=== PATIENT | female | born 1970 | race Caucasian/White ===

== ENCOUNTER → 2017-03-23 | Outpatient (CLI) | payer BC ==
--- NOTE | 2017-03-23 11:48 | XR ---
Abdomen HISTORY: Bilateral renal stones Frontal view of the abdomen correlated to previous exam 02 August 2016 Bilateral renal calculi are again noted. The largest on the right persists and measures approximately 7 mm in diameter. Scattered smaller calculi are present, there may be 6 or 7 additional calculi. On the left multiple calculi are also present, there may be 10 or more calculi, largest at the upper maurice e thought to persist measuring approximately 7 mm with some adjacent calculi present that are smaller in size. There is a spinal curvature. No evident pelvic calcifications. Lung bases are not included on the exam. No bowel obstruction or pneumoperitoneum. IMPRESSION: Bilateral nephrolithiasis.
== END | disposition home or self-care (01) ==
LOC: RADXRMAIN 09:27
PROVIDERS: ATTEND Urology
DX: N20.0 Calculus of kidney (principal)
CPT/HCPCS: 74000

== ENCOUNTER → 2017-11-23 | Outpatient (CLI) | payer OTHER ==
--- NOTE | 2017-11-23 14:22 | XR ---
EXAMINATION TYPE: XR KUB DATE OF EXAM: 11/23/2017 2:10 PM CLINICAL HISTORY: Bilateral ureteral calculi TECHNIQUE: Single supine KUB image of the abdomen is obtained. COMPARISON: 10/28/2017 FINDINGS: Numerous clustered (again at least 10 in number) punctate left lower pole renal calculi are seen in addition to at least 5 clustered upper pole renal calculi and 2 adjacent mid pole calculi ag ain measuring up to 7 mm. Again the right kidney is partially obscured by overlying bowel gas. The previously seen approximatel y 8 mm calculus is redemonstrated within the region of the midpole. A new calculus overlies the L3 tr ansverse process and the previously noted 6 mm calculus on the exam of 10/28/2017 within the lower po le is no longer present, therefore this likely represents a right renal calculus now located within t he region of the right renal pelvis. No new calculi are seen within the pelvis or within the region of the urinary bladder. Osseous struct ures appear intact. Again bilateral CAM deformities of the femoral head neck junctions may predispose the patient to internal femoral impingement. Bowel gas pattern is nonobstructive. Mild dextroscoliot ic curvature of the lumbar spine is present. IMPRESSION: 1. New right-sided calculus in the region of the right renal pelvis presumably migrated from the righ t lower pole as the previously seen 6 minutes calculus on the exam of 10/28/2017 is no longer visuali zed within the lower pole. CT could be performed if there is further clinical indication. 2. Numerous left-sided renal calculi are overall stable from the prior.
== END | disposition home or self-care (01) ==
LOC: RADXRMAIN 13:42
PROVIDERS: ATTEND Physician Assistant
DX: N20.0 Calculus of kidney (principal)
CPT/HCPCS: 74018

== ENCOUNTER → 2017-11-25 | Outpatient (CLI) | payer OTHER ==
[2017-11-25 13:26] LABS: Basophils % (A) 1 %; Eosinophils # (A) 0.1 k/uL (0-0.7); Eosinophils % (A) 2 %; HGB 13.8 gm/dL (11.4-16.0); Lymphocytes # (A) 1.7 k/uL (1.0-4.8); Lymphocytes % (A) 33 %; MCH 31.1 pg (25.0-35.0); MCHC 32.9 g/dL (31.0-37.0); MCV 94.5 fL (80.0-100.0); Mean Platelet Volume 8.3; Monocytes # (A) 0.2 k/uL (0-1.0); Monocytes % (A) 5 %; Neutrophils % (A) 58 %; Platelet Count 186 k/uL (150-450); RBC 4.45 m/uL (3.80-5.40); RDW 13.2 % (11.5-15.5); WBC 5.2 k/uL (3.8-10.6)
[2017-11-25 13:41] LABS: Anion Gap 12 mmol/L; Blood Urea Nitrogen 16 mg/dL (7-17); Calcium 10.4 mg/dL (8.4-10.2); Carbon Dioxide 31 mmol/L (22-30); Chloride 98 mmol/L (98-107); Glucose 93 mg/dL (74-99); Potassium 4.3 mmol/L (3.5-5.1); Sodium 141 mmol/L (137-145)
== END | disposition home or self-care (01) ==
LOC: LABPAT 12:35
PROVIDERS: ATTEND Urology
DX: Z01.812 Encounter for preprocedural laboratory examination (principal); N20.0 Calculus of kidney
CPT/HCPCS: 36415; 80048; 85025; 93005

== ENCOUNTER 2017-11-26 12:18 | Day surgery (SDC) | payer OTHER ==
[2017-11-25 11:37] VITALS: BMI 23.3
[~2017-11-26 12:18] MED LIST: DEXAMETHASONE SOD PHOSPHATE 10 MG/ML 1 ML VIAL IV ONE; GENTAMICIN 120 MG in SODIUM CHLORIDE 0.9% 100 ML IVPB ONE; HYDROmorphone 0.5 MG/0.5 ML SYRINGE IVP PRN; LACTATED RINGERS 1,000 ML IV SCH; LIDOCAINE 1% 20 ML VIAL (10MG/ML) FOR IV START INTRADERMA PRN; MIDAZOLAM 2 MG/2 ML VIAL IV PRN; ONDANSETRON 4 MG/2 ML VIAL IVP ONE; SCOPOLAMINE 1.5MG/72HR PATCH TRANSDERM ONE; ceFAZolin IN SWFI 2 GM/20 ML SYRINGE IVP ONE
[2017-11-26 13:07] VITALS: TEMP 98.5
--- NOTE | 2017-11-26 13:59 | XR ---
EXAMINATION TYPE: XR abdomen 1V DATE OF EXAM: 11/26/2017 HISTORY: pre op for cysto. Rt sided kidney stones. Comparison: November 23, 2017 Single KUB is submitted for interpretation. Findings: Right renal calculi: Overlying bowel content limits evaluation. There appears to be staghorn density overlying the renal pelvis however this was not seen on recent prior study and likely is artifactual in nature. Previously described calculus in the region of the right renal pelvis is poorly characteri zed at this time. Right ureteral calculi: None Visualized. Left renal calculi: Numerous clustered renal calculi upper, mid and lower pole left kidney appear es sentially unchanged. Left ureteral calculi: None Visualized. Pelvic calcifications: None Visualized. Bowel gas pattern is unremarkable. No free air. No mass effects. IMPRESSION: 1. No significant change in multiple clustered renal calculi on the left. 2. Evaluation of the right kidney is limited by overlying bowel content. Priestly described calculus in the region of the right renal pelvis is poorly characterized at this time.
[2017-11-26] MEDS ORDERED: KETOROLAC 30 MG/ML 1 ML VIAL ONE (14:21)
[2017-11-26] MEDS ORDERED: fentaNYL (PF) 50 MCG/ML 2 ML AMP ONE (14:21)
[2017-11-26] MEDS ORDERED: MIDAZOLAM 2 MG/2 ML VIAL ONE (14:21)
[2017-11-26] MEDS ORDERED: PROPOFOL 10 MG/ML 20 ML VIAL IV ONE (14:21)
[2017-11-26] MEDS ORDERED: SUCCINYLCHOLINE CHLORIDE 100 MG/5 ML SYR IV ONE (14:21)
[2017-11-26] MEDS ORDERED: LIDOCAINE 1% INJ 10MG/ML (20 ML MDV) ONE (14:21)
[2017-11-26] MEDS ORDERED: HYDROmorphone (PF) 1 MG/ML ONE (14:21)
[2017-11-26] MEDS ORDERED: LACTATED RINGERS 1,000 ML IV ONE (15:08)
--- NOTE | 2017-11-26 16:34 | P.OP ---
Date of Procedure: 11/26/17 Preoperative Diagnosis: Right Renal Calculi Postoperative Diagnosis: Same Procedure(s) Performed: Cystoscopy, right ureteroscopy with Holmium laser lithotripsy and stone basketing, right ureteral stent insertion Anesthesia: MANAV Surgeon: Geoffrey Burt Estimated Blood Loss (ml): 0 IV fluids (ml): 900 Pathology: none sent Condition: stable Disposition: PACU Indications for Procedure: She is a 47-year-old woman with kidney stones. Her repeat 24-hour urine showed significant improvement in her hypercalciuria and hypernatriuria. In 2014, she was found to have a 6 mm right proximal ureteral calculus. Her CT scan also showed approximately 10 stones in each kidney. She underwent ureteroscopic removal of the right ureteral calculus, as well as the majority of her renal calculi. Her serum calcium level was mildly elevated, but repeat levels were normal. A repeat 24-hour urine study showed hyperoxaluria, and she was advised to decrease her dietary oxalate. She was also advised to decrease her meat consumption. She has recently experienced right flank discomfort. A KUB x-ray shows that a calculus has migrated into the right renal pelvis. She will undergo ureteroscopic removal of this calculus, and other right renal calculi. Operative Findings: Right renal pelvic calculus, fragmented and basketed successfully. Description of Procedure: The patient was taken to the operating room and placed in the dorsolithotomy position, with legs supported in Asim stirrups. The external genitalia was prepped and draped sterilely. The 30 lens was used to introduce the 19-Cymraes Stortz cystoscopic sheath through the urethra and into the bladder under direct vision. The bladder was examined in its entirety. 2 ureteral orifices were seen on the left, consistent with complete duplication. The right ureteral orifice appeared normal. No tumors or foreign bodies were seen. A 0.038 inch Glidewire was passed through the cystoscope. The right ureteral orifice was cannulated, and the Glidewire was advanced up to the right renal pelvis. An 11/ 13-Cymraes ureteral access catheter was passed over the wire, up to the proximal ureter. The Olympus mini flexible ureteroscope was passed through the ureteral access catheter sheath, and was advanced through the proximal ureter and into the right renal pelvis under direct vision. The 200 micron Holmium laser probe was passed through the ureteroscope. A small calculus was seen within an upper pole calyx, and lithotripsy was performed. The right renal pelvic calculus was identified. No additional calculi were seen. Lithotripsy was performed using a testing technique. The calculus passed into a lower pole calyx, making the procedure more difficult. Nonetheless, the calculus fragmented well. Despite the fact that a testing technique was utilized, the calculus did fragment and a 1.9-Cymraes nitinol basket was used to remove the calculus fragments. These were not sent for chemical analysis, as she has undergone stone analysis in the past. Once all significant calculus fragments had been removed, the ureteroscope was withdrawn. It should be noted that there was no evidence of trauma to the renal pelvis or the ureter. The Glidewire was passed through the ureteral access catheter sheath, which was then removed. The Glidewire was backloaded into the cystoscope, which was passed into the bladder. A 24 cm, 4.8 -Cymraes double-J ureteral stent was placed over the wire. Proper stent positioning was verified fluoroscopically and endoscopically. The bladder was emptied and the cystoscope removed. The patient tolerated the procedure well and was taken to the recovery room in stable condition.
[2017-11-26 16:37] VITALS: RESP 16
[2017-11-26] MEDS: MORPHINE SULFATE 5 MG/ML SYRINGE IVP ONE ×2 (16:47→16:56)
[2017-11-26] MEDS ORDERED: HYDROcodone/APAP 5-325MG 1 EACH TAB PO ONE (17:27)
--- NOTE | 2017-11-26 17:28 | FL ---
FLUOROSCOPY 43 seconds of fluoroscopy time were utilized during right ureteral stent placement. 1 images document the procedure.
[2017-11-26 17:54] VITALS: BP 121/79; PULSE 77
== END 2017-11-26 18:12 | disposition home or self-care (01) ==
LOC: OR 12:18
PROVIDERS: ATTEND Urology
DX: N20.0 Calculus of kidney (principal); I10 Essential (primary) hypertension; Z79.1 Long term (current) use of non-steroidal anti-inflammatories (NSAID); Z79.899 Other long term (current) drug therapy
CPT/HCPCS: 81025; 74018; 52356; C2625; C1769; J2250; J1100; J0690; J2405; J2001; J3010; J1885; J1580; J1170; J0330; J2704; J2274

== ENCOUNTER → 2018-01-29 | Outpatient (CLI) | payer OTHER ==
--- NOTE | 2018-01-29 14:03 | XR ---
EXAMINATION TYPE: XR KUB DATE OF EXAM: 01/29/2018 11:05 AM CLINICAL HISTORY: Left-sided flank pain TECHNIQUE: Single supine KUB image of the abdomen is obtained. COMPARISON: 11/23/2017. FINDINGS: The previously seen new right renal calculus within the region of the pelvis overlying the transverse process of L3 on the right is no longer visualized and may have passed in the interim. The numerous clustered renal calculi within the upper pole, mid pole and lower pole are redemonstrated a nd appear overall morphologically similar to the prior exam of 11/23/2017. Again there are at least 10 clustered within the lower pole, 5 within the upper pole and at least 2 clusters within the midpole. No new calcification is seen along the course of the ureter or within the low pelvis. No phleboliths are within the pelvis. Osseous structures are grossly intact. Again can deformities of the bilateral femoral head neck junct ions are noted that may predispose the patient to internal impingement. Bowel gas pattern is nonobstr uctive. Minimal dextroscoliotic curvature of the lumbar spine is redemonstrated. IMPRESSION: 1. Nonvisualization of previously seen right renal calculus that was overlying the transverse process of L3 in the region of the renal pelvis, likely passed in the interim. 2. The numerous clusters of left upper pole, mid pole and lower pole renal calculi appear morphologic ally similar to exam of 11/23/2017 and no new calculi are seen within the course of the ureter or withi n the pelvis to raise suspicion for obstructive uropathy.
== END | disposition home or self-care (01) ==
LOC: RADXRMAIN 10:54
PROVIDERS: ATTEND Urology
DX: N20.0 Calculus of kidney (principal)
CPT/HCPCS: 74018

== ENCOUNTER → 2018-08-20 | Outpatient (CLI) | payer OTHER ==
--- NOTE | 2018-08-23 10:59 | MM ---
Reason for exam: screening (asymptomatic). Last mammogram was performed 2 years and 6 months ago. Physical Findings: A clinical breast exam by your physician is recommended on an annual basis and results should be correlated with mammographic findings. MG 3D Screening Mammo W/Cad Bilateral CC and MLO view(s) were taken. Prior study comparison: February 07, 2016, mammogram, performed at [facility]. May 10, 2015, mammogram, performed at [facility]. The breast tissue is heterogeneously dense. This may lower the sensitivity of mammography. No suspicious abnormality. ASSESSMENT: Negative, BI-RAD 1 RECOMMENDATION: Routine screening mammogram of both breasts in 1 year.
== END | disposition home or self-care (01) ==
LOC: RADMAMWWP 11:59
PROVIDERS: ATTEND Obstetrics & Gynecology
DX: Z12.31 Encounter for screening mammogram for malignant neoplasm of breast (principal)
CPT/HCPCS: 77063; 77067

== ENCOUNTER → 2018-10-15 | Outpatient (CLI) | payer OTHER ==
--- NOTE | 2018-10-15 15:50 | XR ---
EXAMINATION TYPE: XR KUB DATE OF EXAM: 10/15/2018 3:44 PM CLINICAL HISTORY: History of kidney stones with bilateral flank pain TECHNIQUE: Two supine KUB images of the abdomen are obtained. COMPARISON: Abdominal x-ray January 29, 2018. FINDINGS: Multiple left-sided renal calculi are identified, at least 20 calculi are again seen with l arger calculi noted upper pole level just above the 12th rib. There are suspected 5-10 small calculi scattered throughout the right kidney. There is overall nonobstructive bowel gas pattern. Dextroconvex scoliotic curvature centered at L3 le kg is redemonstrated. IMPRESSION: Bilateral left greater than right nephrolithiasis without significant interval change.
== END | disposition home or self-care (01) ==
LOC: RADXRMAIN 15:26
PROVIDERS: ATTEND Urology
DX: N20.0 Calculus of kidney (principal)
CPT/HCPCS: 74018

== ENCOUNTER → 2019-08-02 | Outpatient (CLI) | payer OTHER ==
[2019-08-02 13:06] LABS: Basophils % (A) 1 %; Eosinophils # (A) 0.1 k/uL (0-0.7); Eosinophils % (A) 2 %; HCT 39.6 % (34.0-46.0); HGB 13.8 gm/dL (11.4-16.0); Lymphocytes # (A) 1.5 k/uL (1.0-4.8); Lymphocytes % (A) 27 %; MCH 31.4 pg (25.0-35.0); MCHC 34.8 g/dL (31.0-37.0); MCV 90.2 fL (80.0-100.0); Mean Platelet Volume 7.3; Monocytes # (A) 0.2 k/uL (0-1.0); Monocytes % (A) 4 %; Neutrophils # (A) 3.5 k/uL (1.3-7.7); Neutrophils % (A) 65 %; Platelet Count 206 k/uL (150-450); RBC 4.39 m/uL (3.80-5.40); RDW 11.7 % (11.5-15.5); WBC 5.4 k/uL (3.8-10.6)
[2019-08-02 18:31] LABS: African American GFR (CKD) 118.7 (60.0-200.0)
[2019-08-02 19:28] LABS: Hepatitis C IgG Antibody Non-Reactive (Non-Reactive)
== END | disposition home or self-care (01) ==
LOC: LABWHC1 11:35
PROVIDERS: ATTEND Dermatology
DX: L40.0 Psoriasis vulgaris (principal)
CPT/HCPCS: 36415; 82565; 84450; 84460; 84520; 85025; 86706; 86803; 87340

== ENCOUNTER → 2020-03-16 | Outpatient (CLI) | payer OTHER ==
[2020-03-16 12:14] LABS: Basophils % (A) 1 %; Eosinophils # (A) 0.1 k/uL (0-0.7); Eosinophils % (A) 1 %; HCT 39.2 % (34.0-46.0); HGB 13.5 gm/dL (11.4-16.0); Lymphocytes # (A) 1.4 k/uL (1.0-4.8); Lymphocytes % (A) 32 %; MCH 33.4 pg (25.0-35.0); MCHC 34.4 g/dL (31.0-37.0); MCV 96.8 fL (80.0-100.0); Mean Platelet Volume 7.8; Monocytes # (A) 0.2 k/uL (0-1.0); Monocytes % (A) 6 %; Neutrophils # (A) 2.5 k/uL (1.3-7.7); Neutrophils % (A) 58 %; Platelet Count 172 k/uL (150-450); RBC 4.05 m/uL (3.80-5.40); RDW 12.3 % (11.5-15.5); WBC 4.3 k/uL (3.8-10.6)
[2020-03-16 18:41] LABS: ALT 34 U/L (8-44); AST 34 U/L (13-35)
== END | disposition home or self-care (01) ==
LOC: LABWHC1 11:08
PROVIDERS: ATTEND Dermatology
DX: L40.0 Psoriasis vulgaris (principal)
CPT/HCPCS: 36415; 84450; 84460; 85025

== ENCOUNTER → 2020-06-05 | Outpatient (CLI) | payer OTHER ==
--- NOTE | 2020-06-05 14:29 | XR ---
KUB HISTORY: J 20.0, hematuria and history kidney stones Frontal KUB and 2 images correlated prior KUB 10/15/2018 Multiple fragmented calcifications are superimposed over the lower pole left kidney, there are at [address] 9 calcifications with the largest measuring approximately 3 to 4 mm. Calcifications are present ov er the upper pole and mid similar to prior exam. The largest is at the upper pole measures approximat eveline 5 to 6 mm. There is a dextroscoliosis of the mid lumbar spine. No pneumoperitoneum or bowel obstr uction. Bowel gas obscures detail in the right kidney. Questionable calcification is present over the lower pole. IMPRESSION: Left-sided nephrolithiasis similar to prior exam. Possible right-sided nephrolithiasis.
== END | disposition home or self-care (01) ==
LOC: RADXRMAIN 12:46
PROVIDERS: ATTEND Urology
DX: N20.0 Calculus of kidney (principal)
CPT/HCPCS: 74018

== ENCOUNTER → 2020-06-25 | Outpatient (CLI) | payer OTHER ==
--- NOTE | 2020-06-26 07:09 | US ---
EXAMINATION TYPE: US kidneys/renal and bladder DATE OF EXAM: 06/25/2020 COMPARISON: US 2016 CLINICAL HISTORY: N20.0 CALCULUS OF KIDNEY, R31.9 HEMATURIA. Hematuria, history of kidney stones EXAM MEASUREMENTS: Right Kidney: 11.2 x 5.3 x 4.7 cm Left Kidney: 12.1 x 5.3 x 5.0 cm Right Kidney: multiple echogenic foci throughout with largest measuring 0.6cm inferior pole Left Kidney: multiple echogenic foci throughout with largest measuring 0.8cm superior pole, 1.8cm and 2.0cm cystic areas superior pole Bladder: not fully distended, appears wnl as seen Bilateral Jets seen: no IMPRESSION: Multiple bilateral renal calculi with no evidence of hydronephrosis. Indeterminate hypoechoic lesion in the left kidney most likely in the basis of a renal cyst..
== END | disposition home or self-care (01) ==
LOC: RADUSWWP 15:36
PROVIDERS: ATTEND Urology
DX: N20.0 Calculus of kidney (principal); R31.9 Hematuria, unspecified
CPT/HCPCS: 76770

== ENCOUNTER → 2020-12-18 | Outpatient (CLI) | payer OTHER ==
--- NOTE | 2020-12-18 14:27 | XR ---
EXAMINATION TYPE: XR KUB DATE OF EXAM: 12/18/2020 COMPARISON: 06/05/2020 INDICATION: Right lower abdomen pain history of kidney stones TECHNIQUE: Single view abdomen supine view FINDINGS: There is a normal bowel gas pattern. Psoas margins are normal. No organomegaly is present. Multiple calcifications overlying the inferior pole left kidney. Additional calcifications are in the upper and mid portions of the kidney. The largest at the upper pole left kidney measures 0.7 cm jensen sverse. A few fine calcifications may be at the inferior pole right kidney. IMPRESSION: 1. Multiple bilateral small renal stones.
== END | disposition home or self-care (01) ==
LOC: RADXRMAIN 13:31
PROVIDERS: ATTEND Urology
DX: N20.0 Calculus of kidney (principal)
CPT/HCPCS: 74018

== ENCOUNTER → 2021-03-21 | Outpatient (CLI) | payer OTHER ==
--- NOTE | 2021-03-21 08:29 | US ---
EXAMINATION TYPE: US carotid duplex BILAT DATE OF EXAM: 03/21/2021 COMPARISON: NONE CLINICAL HISTORY: R42 Dizziness. HTN controlled with meds EXAM MEASUREMENTS: RIGHT: Peak Systolic Velocity (PSV) cm/sec ----- Right CCA: 103.0 ----- Right ICA: 119.0 ----- Right ECA: 84.5 ICA/CCA ratio: 1.2 RIGHT: End Diastole cm/sec ----- Right CCA: 41.6 ----- Right ICA: 52.6 ----- Right ECA: 20.8 LEFT: Peak Systolic Velocity (PSV) cm/sec ----- Left CCA: 114.0 ----- Left ICA: 112.0 ----- Left ECA: 100.0 ICA/CCA ratio: 1.0 LEFT: End Diastole cm/sec ----- Left CCA: 43.2 ----- Left ICA: 52.0 ----- Left ECA: 29.3 VERTEBRALS (direction of flow): Right Vertebral: Antegrade Left Vertebral: Antegrade Rhythm: Normal No plaque, significant stenosis or wall thickening visualized. No elevated velocities. IMPRESSION: No hemodynamically significant stenosis seen in either internal carotid artery. Criteria for Assigning % of Stenosis / Diameter reduction (Estimation based on the indirect measurements of the internal carotid artery velocities (ICA PSV). 1. Normal (no stenosis)=ICA PSV < 125 cm/s: ratio < 2.0: ICA EDV<40 cm/s. 2. Less than 50% stenosis=ICA PSV < 125 cm/s: ratio < 2.0: ICA EDV<40 cm/s. 3. 50 to 69% stenosis=ICA PSV of 125 to 230 cm/s: ration 2.0 ? 4.0: ICA EDV 40-100 cm/s. 4. Greater than 70% stenosis to near occlusion= ICA PSV > 230 cm/s: ratio > 4.0: ICA EDV > 100 cm/s. 5. Near occlusion= ICA PSV velocities may be low or undetectable: variable ratio and ICA EDV. 6. Total occlusion=unable to detect flow.
--- NOTE | 2021-03-22 08:16 | EST ---
Stress Test Results/Findings: Exam Performed: stress test Exam Date: 03/21/21 Reason for Exam: DIZZINESS Height: 5 ft 6 in Weight: 70.4 kg Protocol: EXERCISE TOLERANCE TEST Stage: 4 Duration of Exercise: 10:00 Resting Heart Rate: 83 Resting Blood Pressure: 137/96 Maximum Achieved Heart Rate: 164 Maximum Achieved Blood Pressure: 212/58 85% PMHR: 145 100% PMHR: 171 METS: 11.7 Technologist Comment: Stress Test Results/Findings: Patient underwent exercise stress EKG with a David protocol treadmill stress test. Patient exercised into Stage 4 for a total of 10 minutes reaching a total of 11.7 METS. Patient's maximum heart rate was 164 which represented 96 % age- predicted maximum heart rate. Stress EKG findings: At baseline patient's EKG showed normal sinus rhythm, normal axis, no significant ST or T wave abnormalities. At peak exercise, EKG showed nondiagnostic 0.[address] depressions in the inferior leads consistent with normal EKG response. Conclusions: 1. Normal EKG response to exercise without evidence of inducible ischemia. 2. Excellent exercise capacity. [facility]
== END | disposition home or self-care (01) ==
LOC: RADUSWWP 07:38
PROVIDERS: ATTEND Family Medicine
DX: R42 Dizziness and giddiness (principal); I10 Essential (primary) hypertension
CPT/HCPCS: 93017; 93880

== ENCOUNTER → 2021-11-27 | Outpatient (CLI) | payer OTHER ==
--- NOTE | 2021-11-27 13:18 | XR ---
EXAMINATION TYPE: XR KUB DATE OF EXAM: 11/27/2021 COMPARISON: NONE HISTORY: Pain TECHNIQUE: One view abdominal series FINDINGS: The osseous structures are intact. The bowel gas pattern is nonspecific. There are numerous calcific ations overlying the left and right kidney totaling approximately 20 on the left and 10 on the right similar in appearance to prior exam. Curvature of the spine with arthropathy of the hip greater on the right. Bowel gas nonspecific with e xtensive retained debris in the right colon. Lung bases clear. IMPRESSION: 1. Stable bilateral nephrolithiasis.
== END | disposition home or self-care (01) ==
LOC: RADXRMAIN 12:37
PROVIDERS: ATTEND Urology
DX: N20.0 Calculus of kidney (principal)
CPT/HCPCS: 74018

== ENCOUNTER → 2022-04-11 | Outpatient (CLI) | payer OTHER ==
--- NOTE | 2022-04-11 13:46 | XR ---
EXAMINATION TYPE: XR KUB DATE OF EXAM: 04/11/2022 1:24 PM CLINICAL HISTORY: Acute abdominal pain on and off for 2 months. TECHNIQUE: Single supine KUB image of the abdomen is obtained. COMPARISON: Abdominal x-ray November 27, 2021. FINDINGS: Multiple bilateral renal calculi more numerous in the left kidney are redemonstrated. Appro ximately 20 scattered calculi throughout the left kidney again seen. Right kidney has better visualiz ed roughly 8 mm oval density suspect calculus medially at L3-L4 disc space level could be in the righ t renal pelvis with smaller approximately 3-4 calculi upper pole right kidney near L1 level. Underlying dextroconvex scoliosis. Overall nonobstructive bowel gas pattern. Visualized osseous struc tures are intact. IMPRESSION: Bilateral nephrolithiasis. Suspect 8mm right pelvic renal calculus. Correlate clinically.
== END | disposition home or self-care (01) ==
LOC: RADXRMAIN 13:10
PROVIDERS: ATTEND Nurse Practitioner Family
DX: N20.0 Calculus of kidney (principal)
CPT/HCPCS: 74018

== ENCOUNTER → 2022-05-28 | Outpatient (CLI) | payer OTHER ==
[2022-05-28 22:42] LABS: HCT 41.2 % (37.2-46.3); HGB 13.9 g/dL (12.0-15.0); MCH 31.3 pg (27.0-32.0); MCHC 33.7 g/dL (32.0-37.0); MCV 92.8 fL (80.0-97.0); Mean Platelet Volume 11.4 fL (9.5-12.2); NRBC Per 100 WBC 0 /100 WBCS (0.0-0.0); Platelet Count 185 X 10*3/uL (140-440); RBC 4.44 X 10*6/uL (4.10-5.20); RDW 11.8 % (11.5-14.5); WBC 6.28 X 10*3/uL (4.50-10.00)
[2022-05-29 02:08] LABS: African American GFR (CKD) 117.1 (60.0-200.0); BUN/Creat Ratio 25.57 Ratio (12.00-20.00); Blood Urea Nitrogen 17.9 mg/dL (9.0-27.0); Calcium 9.9 mg/dL (8.7-10.3); Potassium 3.5 mmol/L (3.5-5.5)
== END | disposition home or self-care (01) ==
LOC: LABPAT 15:07
PROVIDERS: ATTEND Urology
DX: Z01.812 Encounter for preprocedural laboratory examination (principal); N20.0 Calculus of kidney
CPT/HCPCS: 80048; 85027

== ENCOUNTER 2022-05-29 12:05 | Day surgery (SDC) | payer OTHER ==
--- NOTE | 2022-05-28 16:14 | P.GSHP ---
History of Present Illness H&P Date: 05/28/22 Chief Complaint: Right flank pain The patient is a 51-year-old white female with a history of recurrent urolithiasis. Her calculi in the past have been of calcium oxalate dihydrate and apatite composition. She has undergone multiple ureteroscopy with laser lithotripsy procedures. A KUB x-ray performed earlier this year shows numerous bilateral renal calculi, and she has recently experienced right-sided abdominal and flank pain associated with intermittent hematuria. - Constitutional Constitutional: Denies chills, Denies fever - Genitourinary (Female) Genitourinary: Reports flank pain, Reports kidney stones Past Medical History Past Medical History: Hypertension Additional Past Medical History / Comment(s): HX kidney stones History of Any Multi-Drug Resistant Organisms: None Reported Past Surgical History: Tubal Ligation, Uterine Ablation Additional Past Surgical History / Comment(s): HX OF CYSTOSCOPY AND STENT FOR KIDNEY STONES, JAW SX Past Anesthesia/Blood Transfusion Reactions: Postoperative Nausea & Vomiting (PO NV) Additional Past Anesthesia/Blood Transfusion Reaction / Comment(s): SEVERE Past Psychological History: No Psychological Hx Reported Past Alcohol Use History: Rare Past Drug Use History: None Reported Medications and Allergies Home Medications Medication Instructions Recorded Confirmed Type Losartan Potassium [Cozaar] 25 mg PO DAILY 07/26/15 05/28/22 History Meloxicam [Mobic] 15 tab PO DAILY 07/26/15 05/28/22 History Bp Unknown 1 tab PO DIRECTED 05/28/22 05/28/22 History amLODIPine [Norvasc] 5 mg PO DAILY 05/28/22 05/28/22 History Allergies Allergy/AdvReac Type Severity Reaction Status Date / Time hydromorphone [From Dilaudid] AdvReac Hallucinati Verified 05/28/22 14:19 ons Surgical - Exam - General well developed, well nourished, no distress - Respiratory normal respiratory effort - Abdomen Abdomen: soft, non tender, no guarding, no rigid, no rebound - Genitourinary normal external genitalia - Psychiatric oriented to time, oriented to person, oriented to place, speech is normal, memory intact Results - Imaging Abdominal x-ray: report reviewed, image reviewed Assessment and Plan (1) Calculus of kidney Status: Acute Code(s): N20.0 - CALCULUS OF KIDNEY SNOMED Code(s): 19155738 Plan: Cystoscopy, right retrograde pyelogram, right ureteroscopy with Holmium laser lithotripsy and possible stone basketing, right ureteral stent insertion. Risks include anesthesia, bleeding, infection, and ureteral injury.
[~2022-05-29 12:05] MED LIST changes: -DEXAMETHASONE SOD PHOSPHATE 10 MG/ML 1 ML VIAL IV ONE; +DEXAMETHASONE SOD PHOSPHATE 4 MG/ML 1 ML VIAL IV ONE; -GENTAMICIN 120 MG in SODIUM CHLORIDE 0.9% 100 ML IVPB ONE; -HYDROmorphone 0.5 MG/0.5 ML SYRINGE IVP PRN; +LIDOCAINE 1% (10MG/ML) FOR IV START INTRADERMA PRN; -LIDOCAINE 1% 20 ML VIAL (10MG/ML) FOR IV START INTRADERMA PRN; -SCOPOLAMINE 1.5MG/72HR PATCH TRANSDERM ONE; -ceFAZolin IN SWFI 2 GM/20 ML SYRINGE IVP ONE
--- NOTE | 2022-05-29 12:27 | XR ---
EXAMINATION TYPE: XR KUB DATE OF EXAM: 05/29/2022 COMPARISON: 04/11/2020 HISTORY: Pain TECHNIQUE: One view abdominal series FINDINGS: The osseous structures are intact. The bowel gas pattern is nonspecific. Right kidney: Estimate approximately 5 calculi in the right the largest measuring 4 mm. Left kidney: 07/10/1931 calculi largest is seen in the upper pole measuring 7 mm injury. Curvature of the spine with arthropathy of the right hip. Spina bifida occulta of the sacrum noted. IMPRESSION: 1. Bilateral nephrolithiasis.
[2022-05-29] MEDS ORDERED: SCOPOLAMINE 1 MG/72 HR PATCH TRANSDERM ONE (13:12)
[2022-05-29] MEDS ORDERED: fentaNYL (PF) 50 MCG/ML 2 ML AMP ONE (14:17)
[2022-05-29] MEDS ORDERED: NEOSTIGMINE 1 MG/ML 10 ML VIAL ONE (14:17)
[2022-05-29] MEDS ORDERED: PROPOFOL 10 MG/ML 20 ML VIAL IV ONE (14:17)
[2022-05-29] MEDS ORDERED: LIDOCAINE 2% INJ 20 MG/ML (2 ML VIAL) ONE (14:17)
[2022-05-29] MEDS ORDERED: GLYCOPYRROLATE 0.2 MG/ML 2 ML VIAL ONE (14:17)
[2022-05-29] MEDS ORDERED: MIDAZOLAM 2 MG/2 ML VIAL ONE (14:17)
[2022-05-29] MEDS ORDERED: LIDOCAINE 4% LTA KIT (4 ML) TOPICAL ONE (14:17)
[2022-05-29] MEDS ORDERED: SUCCINYLCHOLINE CHLORIDE 100 MG/5 ML SYR IV ONE (14:17)
[2022-05-29] MEDS ORDERED: PHENYLEPHRINE-0.9% NACL SYG 1,000 MCG/10 ML SYRINGE ONE (14:17)
[2022-05-29] MEDS ORDERED: ROCURONIUM 10 MG/ML (5 ML VIAL) IV ONE (14:17)
[2022-05-29] MEDS ORDERED: IOPAMIDOL-370 50ML BTL MISCELLANE ONE (14:42)
[2022-05-29] MEDS ORDERED: LACTATED RINGERS 1,000 ML IV ONE (15:27)
--- NOTE | 2022-05-29 15:45 | FL ---
Intraoperative fluoroscopic services were provided for "cysto right side for renal calculi." Total fl uoroscopy time is 33 seconds with a total of 3 submitted images to PACS. Images gastric contrast inje ction into the right ureter with placement of right ureteral stent. Please see the operative note for further details.
[2022-05-29 15:50] VITALS: RESP 16; TEMP 97.8
--- NOTE | 2022-05-29 15:59 | P.OP ---
Date of Procedure: 05/29/22 Preoperative Diagnosis: Right renal calculi Postoperative Diagnosis: Same Procedure(s) Performed: Cystoscopy, right retrograde pyelogram, right ureteroscopy with Holmium laser lithotripsy and stone basketing, right ureteral stent insertion Anesthesia: MANAV Surgeon: Geoffrey Burt Estimated Blood Loss (ml): 0 IV fluids (ml): 800 Pathology: none sent Condition: stable Disposition: PACU Indications for Procedure: The patient is a 51-year-old white female with a history of recurrent urolithiasis. Her calculi in the past have been of calcium oxalate dihydrate and apatite composition. She has undergone multiple ureteroscopy with laser lithotripsy procedures. A KUB x-ray performed earlier this year shows numerous bilateral renal calculi, and she has recently experienced right-sided abdominal and flank pain associated with intermittent hematuria. Operative Findings: Multiple small renal calculi, fragmented and basketed. Description of Procedure: The patient was taken to the operating room and placed in the dorsolithotomy position, with legs supported in Asim stirrups. The external genitalia was prepped and draped sterilely. The 30 lens was used to introduce the 21-Tongan Gardner cystoscopic sheath through the urethra and into the bladder under direct vision. The bladder was examined in its entirety. Both ureteral orifices were normal anatomic location and configuration, and clear urine effluxed from both. No tumors or foreign bodies were seen. Using a 10-Tongan cone-tipped catheter, a right retrograde pyelogram was performed. The ureter was normal in course and caliber, and no calculi were seen within the ureter. Likewise, the intrarenal collecting system appeared normal, and there was no evidence of hydronephrosis. A 0.038 inch Glidewire was passed through the cystoscope. The right ureteral orifice was cannulated, and the Glidewire was advanced up to the renal pelvis. The cystoscope was removed, and an 11/13-Tongan ureteral access catheter was passed over the wire, up to the proximal ureter. The flexible ureteroscope was then passed through the ureteral access catheter sheath, up to the renal pelvis. Each calyx was examined. A 4 mm calculus was seen within a mid pole calyx. A slightly smaller, spiculated calculus was seen within an upper pole calyx. Multiple calyces contained Javier's plaques and submucosal calcifications. The 200 micron Holmium laser probe was passed through the ureteroscope, and lithotripsy was performed. Each calculus was fragmented, and the Javier's plaques were treated so that they would not show up as calculi and future imaging studies. In several instances, the mucosa overlying submucosal calcifications was incised in order to remove these calcifications. The largest fragment from the mid pole calculus was removed using a 1.9-Tongan nitinol basket. This fragment measured only 1-2 mm in size. After all calculi had been treated, the ureteroscope was withdrawn. There was no evidence of ureteral trauma. The Glidewire was passed through the ureteroscope, which was removed along with the ureteral access catheter sheath. The Glidewire was backloaded into the cystoscope, which was passed into the yuri dder. A 24 cm, 4.8-Tongan double-J ureteral stent was placed over the wire. Proper stent positioning was verified fluoroscopically and endoscopically. The bladder was emptied and the cystoscope removed. The patient tolerated the procedure well and was taken to the recovery room in stable condition. [facility] Report: Procedure Acuity: Urgent Stone Size and Location: 4 mm, right mid pole Ureteral Dilation: No Ureteral Access Sheath Used: Yes Stone Sent for Analysis: No All Stones/Fragments Were Removed with a Basket: Yes Complications: No Preoperative Antibiotics Given: Yes Stent Placed: Yes If Stent Placed, Was String Left Attached: No If Stent Placed, When is it to be Removed: 2 weeks Discharge Medications: Toradol
[2022-05-29] MEDS ORDERED: MEPERIDINE 50 MG/ML SYRINGE IVP ONE (16:06)
[2022-05-29 17:28] VITALS: BP 136/80; PULSE 83
== END 2022-05-29 17:38 | disposition home or self-care (01) ==
LOC: OR 12:05
PROVIDERS: ATTEND Urology
DX: N20.0 Calculus of kidney (principal); I10 Essential (primary) hypertension; Z98.51 Tubal ligation status; Z79.899 Other long term (current) drug therapy; Z79.1 Long term (current) use of non-steroidal anti-inflammatories (NSAID); Z88.5 Allergy status to narcotic agent
CPT/HCPCS: 81025; 74018; 52356; C2625; C1758; C1769; J2250; J1100; J2710; J2175; J2405; J0690; J3010; J2370; J0330; J2704; Q9967; J2001

== ENCOUNTER → 2022-10-22 | Outpatient (CLI) | payer OTHER ==
--- NOTE | 2022-10-22 10:55 | MM ---
Reason for Exam: Additional evaluation requested from prior study. Last mammogram was performed 4 year(s) and 2 month(s) ago. Patient History: Menarche at age 13. First Full-Term at age 31. Late child-bearing (after 30). Postmenopausal. Patient has history of breast feeding. Risk Values: Ayana 5 year model risk: 1.4%. NCI Lifetime model risk: 12.0%. Prior Study Comparison: 05/10/2015 Screening Mammogram, [facility]. 02/07/2016 Screening Mammogram, [facility]. 08/20/2018 Bilateral Screening Mammogram, [facility]. Tissue Density: The breast tissue is heterogeneously dense. This may lower the sensitivity of mammography. Findings: Analyzed By CAD. No suspicious masses, calcifications or distortions. Overall Assessment: Negative, BI-RAD 1 Management: Screening Mammogram of both breasts in 1 year. A clinical breast exam by your physician is recommended on an annual basis and results should be correlated with mammographic findings. This exam should not preclude additional follow-up of suspicious palpable abnormalities. Results were given to the patient verbally at the time of exam. Electronically signed and approved by: Ludwin Ocampo DO
== END | disposition home or self-care (01) ==
LOC: RADMAMWWP 09:45
PROVIDERS: ATTEND Family Medicine
DX: N64.89 Other specified disorders of breast (principal); Z78.0 Asymptomatic menopausal state
CPT/HCPCS: 77062; 77066

== ENCOUNTER → 2023-06-22 | Outpatient (CLI) | payer BC ==
[2023-06-22 15:33] LABS: Basophils # (A) 0.03 X 10*3/uL (0.00-0.10); Basophils % (A) 0.5 %; Eosinophils # (A) 0.12 X 10*3/uL (0.04-0.35); HCT 38.6 % (37.2-46.3); HGB 12.9 d/dL (12.0-15.0); Lymphocytes % (A) 32.8 %; MCH 30.3 pg (27.0-32.0); MCHC 33.4 d/dL (32.0-37.0); MCV 90.6 FL (80.0-97.0); Mean Platelet Volume 10.7 FL (9.5-12.2); Monocytes # (A) 0.35 X 10*3/uL (0.20-1.00); Monocytes % (A) 5.7 %; NRBC Per 100 WBC 0 X 10*3/uL (0.00-0.01); Neutrophils # (A) 3.58 X 10*3/uL (1.80-7.70); Neutrophils % (A) 58.8 %; Platelet Count 229 X 10*3/uL (140-440); RBC 4.26 X 10*6/uL (4.10-5.20); RDW 11.7 % (11.5-14.5); WBC 6.09 X 10*3/uL (4.50-10.00)
[2023-06-22 16:37] LABS: ALT 17 U/L (8-44); AST 19 U/L (13-35); Albumin 5.2 d/dL (3.8-4.9); Albumin/Globulin Ratio 1.79 Ratio (1.60-3.17); Alkaline Phosphatase 78 U/L (41-126); Blood Urea Nitrogen 11.2 mg/dL (9.0-27.0); Calcium 10.6 mg/dL (8.7-10.3); Carbon Dioxide 27.3 mmol/L (21.6-31.8); Chloride 100 mmol/L (96-109); Globulin 2.9 d/dL (1.6-3.3); Glucose 83 mg/dL (70-110); Potassium 3.5 mmol/L (3.5-5.5); Sodium 143 mmol/L (135-145); Total Bilirubin 0.6 mg/dL (0.3-1.2); Total Protein 8.1 d/dL (6.2-8.2)
[2023-06-22 17:25] LABS: Hepatitis B Surface AB- Quant 3.5 mIU/mL; Hepatitis B Surface Antigen Nonreactive; Hepatitis C IgG Antibody Nonreactive
== END | disposition home or self-care (01) ==
LOC: LABWHC1 10:36
PROVIDERS: ATTEND Dermatology Procedural Dermatology
DX: L40.0 Psoriasis vulgaris (principal)
CPT/HCPCS: 36415; 80053; 85025; 86480; 86704; 86706; 86803; 87340

== ENCOUNTER → 2023-11-25 | Outpatient (CLI) | payer BC ==
--- NOTE | 2023-11-25 20:27 | BD ---
EXAMINATION TYPE: Axial Bone Density DATE OF EXAM: 11/25/2023 CLINICAL HISTORY: 53 years old Female. ICD-10 CODE: Z78.0 MENOPAUSE Height: 66 Weight: 154 FRAX RISK QUESTIONS: Family History (Parent hip fracture): no History of Fracture in Adulthood: no Secondary Osteoporosis: no RISK FACTORS HISTORY OF: Family History of Osteoporosis: no Active: yes Diet low in dairy products/other sources of calcium: no Postmenopausal woman: no Lost more than 2 inches in height since high school: no MEDICATIONS: Additional Medications: yes hbp meds, psoriatic meds, EXAM MEASUREMENTS: Bone mineral densitometry was performed using the [employer] System. Bone mineral density as measured about the Lumbar spine is: ----- L1-L4(G/cm2): 1.430 T Score Values are as follows: ----- L1: 1.5 ----- L2: 1.7 ----- L3: 2.1 ----- L4: 2.7 ----- L1-L4: 2.1 Z Score Values are as follows: ----- L1: 1.9 ----- L2: 2.1 ----- L3: 2.5 ----- L4: 3.2 ----- L1-L4: 2.5 Bone mineral density baseline Bone mineral density about the R hip (g/cm2): 1.272 Bone mineral density about the L hip (g/cm2): 1.278 T Score values are as follows: -----R Neck: 1.4 -----L Neck: 1.0 -----R Total: 2.1 -----L Total: 2.1 Z Score values are as follows: -----R Neck: 2.2 -----L Neck: 1.8 -----R Total: 2.5 -----L Total: 2.6 Bone mineral density baseline FRAX%s: The graph provided illustrates a 3.9% chance for a major osteoporotic fx and a 0.0% chance fo r the hips probability for fx in 10 years time. IMPRESSION: Normal (Values between +1 and -1 indicate normal bone mass). Consider repeating this study in 5 year s or sooner if there is some new clinical indication. NOTE: T-SCORE=SD OF THE YOUNG ADULT MEAN.
--- NOTE | 2023-11-29 15:55 | MM ---
Reason for Exam: Screening (asymptomatic). Last mammogram was performed 1 year(s) and 1 month(s) ago. Patient History: Menarche at age 13. First Full-Term at age 31. Late child-bearing (after 30). Postmenopausal. Patient has history of breast feeding. Risk Values: Ayana 5 year model risk: 1.5%. NCI Lifetime model risk: 11.8%. Prior Study Comparison: 02/07/2016 Screening Mammogram, [facility]. 08/20/2018 Bilateral Screening Mammogram, [facility]. 10/22/2022 Bilateral MG 3D diag mammo w/cad EDER, [facility]. Tissue Density: The breast tissue is heterogeneously dense. This may lower the sensitivity of mammography. Findings: Analyzed By CAD. The pattern is symmetrical and stable. No significant interval changes. No suspicious groups of microcalcifications, spiculated or lobular masses, architectural distortion or other secondary signs of malignancy are mammographically apparent. Overall Assessment: Benign, BI-RAD 2 Management: Screening Mammogram of both breasts in 1 year. A negative mammogram report should not preclude additional follow up of suspicious palpable abnormalities. Patient should continue monthly self breast exam. A clinical breast exam by your physician is recommended on an annual basis and results should be correlated with mammographic findings. Electronically signed and approved by: Usama Chaves D.O. Radiologis
== END | disposition home or self-care (01) ==
LOC: RADBDWWP 15:17
PROVIDERS: ATTEND Obstetrics & Gynecology
DX: Z12.31 Encounter for screening mammogram for malignant neoplasm of breast (principal); Z78.0 Asymptomatic menopausal state
CPT/HCPCS: 77063; 77067; 77080

== ENCOUNTER → 2024-03-04 | Outpatient (CLI) | payer BC ==
--- NOTE | 2024-03-04 11:15 | CT ---
EXAMINATION TYPE: CT abdomen pelvis wo con DATE OF EXAM: 03/04/2024 COMPARISON: 07/18/2015 HISTORY: Rt sided pain CT DLP: 824 mGycm Automated exposure control for dose reduction was used. TECHNIQUE: Helical acquisition of images was performed from the lung bases through the pelvis. FINDINGS: Findings: The lungs are clear. Gallbladder is normal and there is no gallstone, wall thickening, pericholecystic fluid or distention . There is no biliary ductal dilatation. There is no organomegaly of the liver, pancreas, spleen or adrenal glands. There is a 2.5 cm simple h epatic cyst in the left lobe of the liver. There are multiple, approximately 5, nonobstructing right renal calcifications the largest of which is approximately 10 to 11 mm. There is no right hydronephrosis or hydroureter or right ureteral calc ifications. There are multiple innumerable left renal calcifications the largest of which are found in the upper pole measure approximately 15 mm. The upper pole collecting system is moderately dilated and there is an 8.6 mm calcification in the proximal left ureter. The findings raise the question of a duplicated collecting system on the left with an obstructed left upper pole collecting system. The caliber of the abdominal aorta is normal and there is no retroperitoneal adenopathy or hemorrhage . The bowel loops are normal in caliber is no evidence of obstruction. No inflammatory changes are iden tified in the mesentery and there is no free intraperitoneal air or fluid. There is no pelvic mass, free fluid, abscess or adenopathy. There is mild diverticulosis of the colon without CT evidence of diverticulitis. The osseous structures and soft tissues are unremarkable. IMPRESSION: 1. Multiple nonobstructing right renal calcifications as described above. 2. Multiple innumerable left renal calcifications with what appears to be moderately obstructed upper pole left collecting system secondary to an 8.65 mm proximal left ureteral calculus. 3. No other significant adenopathy seen
== END | disposition home or self-care (01) ==
LOC: RADCTMAIN 08:06
PROVIDERS: ATTEND Family Medicine
DX: N20.2 Calculus of kidney with calculus of ureter (principal); K81.0 Acute cholecystitis
CPT/HCPCS: 74176

== ENCOUNTER → 2024-04-05 | Outpatient (CLI) | payer BC ==
[2024-04-05 15:41] LABS: Basophils # (A) 0.04 X 10*3/uL (0.00-0.10); Basophils % (A) 0.6 %; Eosinophils # (A) 0.36 X 10*3/uL (0.04-0.35); Eosinophils % (A) 5.5 %; HCT 41.8 % (37.2-46.3); Lymphocytes # (A) 1.94 X 10*3/uL (0.90-5.00); Lymphocytes % (A) 29.7 %; MCH 30.8 pg (27.0-32.0); MCHC 33.5 g/dL (32.0-37.0); MCV 91.9 FL (80.0-97.0); Mean Platelet Volume 10.8 FL (9.5-12.2); Monocytes # (A) 0.44 X 10*3/uL (0.20-1.00); Monocytes % (A) 6.7 %; NRBC Per 100 WBC 0 X 10*3/uL (0.00-0.01); Neutrophils # (A) 3.73 X 10*3/uL (1.80-7.70); Neutrophils % (A) 57.2 %; Platelet Count 214 X 10*3/uL (140-440); RBC 4.55 X 10*6/uL (4.10-5.20); RDW 11.4 % (11.5-14.5); WBC 6.53 X 10*3/uL (4.50-10.00)
[2024-04-05 16:01] LABS: BUN/Creat Ratio 21.43 Ratio (12.00-20.00); Calcium 10.4 mg/dL (8.7-10.3); Carbon Dioxide 32.5 mmol/L (21.6-31.8); Chloride 100 mmol/L (96-109); Glucose 105 mg/dL (70-110); Potassium 3.7 mmol/L (3.5-5.5); Sodium 142 mmol/L (135-145)
== END | disposition home or self-care (01) ==
LOC: LABPAT 09:26
PROVIDERS: ATTEND Urology
DX: Z01.812 Encounter for preprocedural laboratory examination (principal); N20.0 Calculus of kidney; N20.1 Calculus of ureter
CPT/HCPCS: 80048; 85025

== ENCOUNTER → 2024-04-07 | Outpatient (CLI) | payer BC | END | disposition home or self-care (01) | LOC: LABPAT 11:41 | PROVIDERS: ATTEND Urology | DX: Z01.818 Encounter for other preprocedural examination (principal) | CPT/HCPCS: 93005 ==

== ENCOUNTER → 2024-04-15 | Day surgery (SDC) | payer BC ==
--- NOTE | 2024-04-14 08:08 | P.GSHP ---
History of Present Illness H&P Date: 04/14/24 53 yo female with a large proximal ureteral stone left aas well as multiple renal stones, [>3cm burden] who comes a left pcnl. the risks, complications and alternatives have been discussed incluing injury to kidney, ureter, adjacent organs, infection, bleeding failure to access kidney and remove stones. She comes for htis procedure. - Constitutional Constitutional: Denies chills, Denies fever - EENT Eyes: denies blurred vision, denies pain Ears, nose, mouth and throat: Denies headache, Denies sore throat - Cardiovascular Cardiovascular: Denies chest pain, Denies shortness of breath - Respiratory Respiratory: Denies cough, Denies 7 - Gastrointestinal Gastrointestinal: Denies abdominal pain, Denies diarrhea, Denies nausea, Denies vomiting - Genitourinary (Female) Genitourinary: Denies dysuria, Denies hematuria - Genitourinary (Male) Genitourinary: Denies dysuria, Denies hematuria - Musculoskeletal Musculoskeletal: Denies myalgias - Integumentary Integumentary: Denies pruritus, Denies rash - Neurological Neurological: Denies numbness, Denies weakness - Psychiatric Psychiatric: Denies anxiety, Denies depression - Endocrine Endocrine: Denies fatigue, Denies weight change Past Medical History Past Medical History: Hypertension Additional Past Medical History / Comment(s): HX kidney stones History of Any Multi-Drug Resistant Organisms: None Reported Past Surgical History: Tubal Ligation, Uterine Ablation Additional Past Surgical History / Comment(s): HX OF CYSTOSCOPY AND STENT FOR KIDNEY STONES, JAW SX Past Anesthesia/Blood Transfusion Reactions: Postoperative Nausea & Vomiting (PONV) Additional Past Anesthesia/Blood Transfusion Reaction / Comment(s): SEVERE Past Psychological History: No Psychological Hx Reported - Past Family History Mother Family Medical History: Cancer Additional Family Medical History / Comment(s): colon cancer Father History Unknown: Yes Additional Family Medical History / Comment(s): in 20s Medications and Allergies Home Medications Medication Instructions Recorded Confirmed Type Losartan Potassium [Cozaar] 100 mg PO DAILY 07/26/15 04/06/24 History Meloxicam [Mobic] 15 tab PO DAILY 07/26/15 04/06/24 History amLODIPine [Norvasc] 5 mg PO DAILY 05/28/22 04/06/24 History hydroCHLOROthiazide 25 mg PO DAILY 05/29/22 04/06/24 History Unk Talz 1 injection SQ Q30D 04/06/24 04/06/24 History Allergies Allergy/AdvReac Type Severity Reaction Status Date / Time hydromorphone [From Dilaudid] AdvReac Hallucinati Verified 04/06/24 15:29 ons Surgical - Exam - General well developed, well nourished, no distress - Eyes normal ocular movement, no icteric - ENT no hearing loss, no congestion - Neck no masses, trachea midline - Respiratory normal respiratory effort, clear to auscultation - Abdomen Abdomen: soft, non tender, no guarding, no rigid, no rebound - Integumentary no rash, no abnormal pigmentation - Neurologic no disoriented, no combative - Psychiatric oriented to time, oriented to person, oriented to place, speech is normal, memory intact Results - Imaging CT scan - abdomen: report reviewed, image reviewed CT scan - pelvis: report reviewed, image reviewed Assessment and Plan Assessment: Impression: left renal and ureteral stones Plan: left pcnl
[~2024-04-15] MED LIST changes: -DEXAMETHASONE SOD PHOSPHATE 4 MG/ML 1 ML VIAL IV ONE; -LACTATED RINGERS 1,000 ML IV SCH; -LIDOCAINE 1% (10MG/ML) FOR IV START INTRADERMA PRN; +LIDOCAINE 1% INJ 10MG/ML (20 ML MDV) ONE; -MIDAZOLAM 2 MG/2 ML VIAL IV PRN; +MIDAZOLAM 2 MG/2 ML VIAL ONE; -ONDANSETRON 4 MG/2 ML VIAL IVP ONE; +PROPOFOL 10 MG/ML 20 ML VIAL IV ONE; +fentaNYL (PF) 50 MCG/ML 2 ML AMP IV PRN; +fentaNYL (PF) 50 MCG/ML 2 ML AMP ONE
--- NOTE | 2024-04-15 10:23 | XR ---
EXAMINATION TYPE: XR KUB DATE OF EXAM: 04/15/2024 Comparison: 05/29/2022 Clinical History: 53-year-old female preoperative assessment, kidney stones Findings: Nonobstructive bowel gas pattern. Mild stool burden. Numerous calcifications are redemonstrated proje cting in both kidneys with aggregate dimension on the left up to 1.7 cm and calcifications are on the right estimated to measure up to 9 mm. There is Steinstrasse at the distal left ureter for a span of 3.6 cm with individual stones measuring up to 7 mm. Impression: 1. Distal left ureter Steinstrasse for a span of 3.6 cm. Individual stones measure up to 7 mm. 2. Additional bilateral nephrolithiasis as above.
[2024-04-15] MEDS: DEXAMETHASONE SOD PHOSPHATE 4 MG/ML 1 ML VIAL IV ONE (11:10)
[2024-04-15] MEDS: ONDANSETRON 4 MG/2 ML VIAL IVP ONE (11:10)
[2024-04-15] MEDS: LACTATED RINGERS 1,000 ML IV SCH (11:10)
[2024-04-15] MEDS: LACTATED RINGERS 1,000 ML IV ONE (12:31)
--- NOTE | 2024-04-15 12:55 | P.OP ---
Date of Procedure: 04/15/24 Preoperative Diagnosis: left ureteral and renal stones Postoperative Diagnosis: same Implants: cystoscopy, left ureteroscopy laser lithotripsy, placement of 624 double-J catheter Anesthesia: BENITOA Surgeon: Robles Gilbert Estimated Blood Loss (ml): 0 Pathology: other (stone) Condition: stable Disposition: PACU Indications for Procedure: the patient is 53. She originally presented with a 1 cm proximal ureteral stone obstructing the collecting system and probably a dozen small stones throughout theleft collecting system. She was sent to me for left percutaneous nephrostolithotomy for which she is set up for this today however KUB today showed that the centimeter stone in moved to the ureteral vesicle junction and probably 7 date stones followed in a Steinstrasse. I will therefore do aleft ureteroscopy laser lithotripsy and if he goes well pass the ureteroscope up into the left kidney to try to remove the remaining stones. Description of Procedure: patient brought to the operating suite. Given a general anesthetic. Placed lithotomy position with a sterile prep and drape. Cystoscopy Foroblique lens and 22-Hungarian sheath identifies a normal urethra. The bladder mucosa is unremarkable. There are 2 left ureteral orifice's I passed the semirigid scope into the more lateral orifice and identify the obstructing stones. With the 200 laser probe I break the leading distal stone into tiny pieces and flushed and basket out of the orifice. I then break the remaining 7 stones and flushed out of the orifice. This portion of the procedurewent well. I then through the ureteroscope passed an 035 wire up into the left kidney. Over the wires passed a 11-13 reentry sheath. The inner sheath is removed. I then pass a flexible ureteroscope into the collecting system look through each minor calyx identify multiple stones and break them into tiny fragments with the 200 laser probe. At this point in time there are no remaining significant stones. I elect to place a double-J catheter. I removed the ureteroscope. Through the sheath is passed an 035 wire up into the kidney. Over the wires and passed a 6 x 24 double-J catheter that coils in the renal pelvis and the bladder the bladder is drained and any stone fragments in the bladder drained out and sent to pathology. The patient is awakened and returned recovery room good condition. Blood loss is negligible. She'll be discharged home upon recovery for stent removal in one week.
[2024-04-15] MEDS: droPERidol 5 MG/2 ML VIAL IVP ONE (13:18)
[2024-04-15 13:20] VITALS: RESP 16; TEMP 97.1
[2024-04-15] MEDS: MEPERIDINE 50 MG/ML SYRINGE IVP STA (13:20)
--- NOTE | 2024-04-15 13:40 | FL ---
EXAMINATION TYPE: FL guidance operating room DATE OF EXAM: 04/15/2024 HISTORY: Fluoroscopy time Total dose area product (DAP) in uGy*m?, mGy*cm? (or similar): 0.55266 IMPRESSION: 1. Fluoroscopy time.
[2024-04-15 14:14] VITALS: BP 125/82; PULSE 81
== END | disposition home or self-care (01) ==
LOC: OR 09:54
PROVIDERS: ATTEND Urology
DX: N20.2 Calculus of kidney with calculus of ureter (principal); I10 Essential (primary) hypertension; Z79.1 Long term (current) use of non-steroidal anti-inflammatories (NSAID); Z80.0 Family history of malignant neoplasm of digestive organs; Z88.5 Allergy status to narcotic agent; Z98.51 Tubal ligation status
CPT/HCPCS: 52353; 81025; 82365; 74018; C2625; C1769; J2250; J1100; J2175; J0690; J2405; J2001; J3010; J2704; J1790

== ENCOUNTER → 2024-06-13 | Outpatient (CLI) | payer BC ==
--- NOTE | 2024-06-13 15:57 | XR ---
KUB. HISTORY: Abdominal pain. COMPARISON: 04/15/2024. TECHNIQUE: Single supine view the abdomen was obtained. FINDINGS: The bowel gas pattern is nonspecific and there is no evidence of obstruction. History of calcifications seen in the distal left ureter have cleared in the interval. There are mult iple tiny calcifications scattered throughout the left kidney, the largest of which are in the upper pole measuring 7 mm. The cluster of calcifications seen in the lower pole left kidney on the prior st udy has decreased with a few small calcifications persisting. There is a stable cluster of small calcifications in the right kidney largest of which measures appro ximately 6 mm. There are no calcifications in the region of the distal right ureter. The osseous stru ctures are intact. The bowel gas pattern is nonspecific. There is mild stool within the colon. IMPRESSION: 1. Bilateral renal calcifications suspected above. The calcification seen in the distal left ureter o n the prior study of cleared in the interval. 2. Nonspecific bowel gas pattern.
== END | disposition home or self-care (01) ==
LOC: RADXRMAIN 14:41
PROVIDERS: ATTEND Urology
DX: N20.0 Calculus of kidney (principal)
CPT/HCPCS: 74018

== ENCOUNTER → 2024-07-13 | Outpatient (CLI) | payer BC ==
[2024-07-13 18:23] LABS: Basophils # (A) 0.05 X 10*3/uL (0.00-0.10); Basophils % (A) 0.8 %; Eosinophils # (A) 0.15 X 10*3/uL (0.04-0.35); Eosinophils % (A) 2.5 %; HCT 38.5 % (37.2-46.3); Lymphocytes # (A) 2.33 X 10*3/uL (0.90-5.00); Lymphocytes % (A) 38.5 %; MCH 31.3 pg (27.0-32.0); MCHC 33.8 g/dL (32.0-37.0); MCV 92.8 FL (80.0-97.0); Monocytes # (A) 0.51 X 10*3/uL (0.20-1.00); Monocytes % (A) 8.4 %; NRBC Per 100 WBC 0 X 10*3/uL (0.00-0.01); Neutrophils % (A) 49.6 %; Platelet Count 217 X 10*3/uL (140-440); RBC 4.15 X 10*6/uL (4.10-5.20); RDW 11.9 % (11.5-14.5); WBC 6.05 X 10*3/uL (4.50-10.00)
[2024-07-13 18:57] LABS: ALT 18 U/L (8-44); AST 21 U/L (13-35); Albumin/Globulin Ratio 1.92 Ratio (1.60-3.17); Alkaline Phosphatase 80 U/L (41-126); BUN/Creat Ratio 20.86 Ratio (12.00-20.00); Blood Urea Nitrogen 14.6 mg/dL (9.0-27.0); Calcium 10.1 mg/dL (8.7-10.3); Carbon Dioxide 30.4 mmol/L (21.6-31.8); Chloride 100 mmol/L (96-109); Globulin 2.6 g/dL (1.6-3.3); Glucose 82 mg/dL (70-110); Potassium 3.5 mmol/L (3.5-5.5); Sodium 142 mmol/L (135-145); Total Bilirubin 0.5 mg/dL (0.3-1.2); Total Protein 7.6 g/dL (6.2-8.2)
== END ==
LOC: LABWHC1 14:37
PROVIDERS: ATTEND Dermatology
DX: L40.0 Psoriasis vulgaris
CPT/HCPCS: 36415; 80053; 85025; 86480

== ENCOUNTER → 2024-08-02 | Outpatient (CLI) | payer BC ==
[2024-08-02 16:25] LABS: Appearance,Urine Clear (Clear); Bilirubin,Urine Negative (Negative); Blood,Urine Negative (Negative); Color,Urine Yellow (Yellow); Ketones,Urine Negative (Negative); Nitrite,Urine Negative (Negative); PH, Urine 7.5; Specific Gravity,Urine 1.005 (1.001-1.030); Urobilinogen,Urine 0.2 E.U./DL
[2024-08-02 16:33] LABS: Bacteria,Urine Trace (None Seen)
[2024-08-02 17:07] LABS: Urine Creatinine 14.6 mg/dL (28.0-217.0)
[2024-08-02 19:30] LABS: BUN/Creat Ratio 30.43 Ratio (12.00-20.00); Blood Urea Nitrogen 21.3 mg/dL (9.0-27.0); Calcium 10.1 mg/dL (8.7-10.3); Carbon Dioxide 29.5 mmol/L (21.6-31.8); Chloride 99 mmol/L (96-109); Glucose 97 mg/dL (70-110); Potassium 3.5 mmol/L (3.5-5.5); Sodium 140 mmol/L (135-145)
[2024-08-07 19:40] LABS: Metanephrine, Free <25 pg/mL (< OR = 57); Normetanephrine, Free 64 pg/mL (< OR = 148); Total, Free (MN + NMN) 64 pg/mL (< OR = 205)
== END | disposition home or self-care (01) ==
LOC: LABWHC1 13:06
PROVIDERS: ATTEND Internal Medicine
DX: I10 Essential (primary) hypertension (principal)
CPT/HCPCS: 36415; 80048; 81001; 82043; 82088; 82570; 83835; 84244; 84443; 84481

== ENCOUNTER → 2024-09-15 | Outpatient (CLI) | payer BC ==
--- NOTE | 2024-09-15 10:56 | XR ---
Pelvis. HISTORY: Chronic pain COMPARISON: None. TECHNIQUE: Single AP view the pelvis is obtained. FINDINGS: The pelvis is intact and there is no fracture or focal intraosseous abnormality. There is no diastasi s or sclerosis of the SI joints or pubic symphysis. There is advanced osteoarthritis of the right hip with advanced joint space narrowing, subchondral sc lerosis and cyst formation. There is mild osteoarthritis of the left hip. IMPRESSION: 1. Unremarkable pelvis and SI joints. 2. Advanced osteoarthritis of the right hip and mild osteoarthritis of the left hip. [facility], Workstation: [facility], 09/15/2024 10:54 AM
--- NOTE | 2024-09-15 10:57 | XR ---
SI joints HISTORY: Chronic pelvic pain. COMPARISON: None. TECHNIQUE: 3 views of the SI joints were obtained. FINDINGS: The SI joints are unremarkable. There is no sclerosis or diastasis. The sacrum is intact. There is marked osteoarthritis of the right hip and mild osteoarthritis of the left hip. IMPRESSION: Unremarkable sacrum and SI joints. [facility], Workstation: [facility], 09/15/2024 10:55 AM
== END | disposition home or self-care (01) ==
LOC: RADXRMAIN 09:30
PROVIDERS: ATTEND Family Medicine
DX: M16.0 Bilateral primary osteoarthritis of hip (principal)
CPT/HCPCS: 72170; 72202

== ENCOUNTER → 2025-02-16 | Outpatient (CLI) | payer BC ==
--- NOTE | 2025-02-16 12:10 | MM ---
Reason for Exam: Screening (asymptomatic). Last mammogram was performed 1 year(s) and 3 month(s) ago. Patient History: Menarche at age 13. First Full-Term at age 31. Late child-bearing (after 30). Postmenopausal. Patient has history of breast feeding. Risk Values: Ayana 5 year model risk: 1.5%. NCI Lifetime model risk: 11.6%. Prior Study Comparison: 08/20/2018 Bilateral Screening Mammogram, [facility]. 10/22/2022 Bilateral MG 3D diag mammo w/cad EDER, [facility]. 11/25/2023 Bilateral MG 3D screening mammo w/cad, [facility]. Tissue Density: The breasts are heterogeneously dense, which may obscure small masses. Findings: Analyzed By CAD. There is no suspicious group of microcalcifications or new suspicious mass in either breast. Overall Assessment: Negative, BI-RAD 1 Management: Screening Mammogram of both breasts in 1 year. . Patient should continue monthly self-breast exams. A clinical breast exam by your physician is recommended on an annual basis. This exam should not preclude additional follow-up of suspicious palpable abnormalities. Note on Ayana scores and lifetime risk: 1. A Ayana score greater than 3% is considered moderate risk. If this is the case, consider specialist referral to assess eligibility for a risk reducing agent. 2. If overall lifetime risk for the development of breast cancer is 20% or higher, the patient may qualify for future screening with alternating mammogram and breast MRI. [facility], , 02/16/2025 12:07 PM. Electronically signed and approved by: Masood Akhtar M.D. Radiologis
== END | disposition home or self-care (01) ==
LOC: RADMAMWWP 11:22
PROVIDERS: ATTEND Family Medicine
DX: Z12.31 Encounter for screening mammogram for malignant neoplasm of breast (principal); R92.333 Mammographic heterogeneous density, bilateral breasts; Z78.0 Asymptomatic menopausal state
CPT/HCPCS: 77063; 77067

== ENCOUNTER → 2025-06-12 | Outpatient (CLI) | payer BC ==
[2025-06-12 15:15] LABS: Basophils # (A) 0.03 X 10*3/uL (0.00-0.10); Basophils % (A) 0.5 %; Eosinophils # (A) 0.18 X 10*3/uL (0.04-0.35); Eosinophils % (A) 3.2 %; HCT 38.0 % (37.2-46.3); HGB 12.6 g/dL (12.0-15.0); Immature Grans, Automated 0.20 %; Lymphocytes # (A) 2.13 X 10*3/uL (0.90-5.00); Lymphocytes % (A) 38.3 %; MCH 30.1 pg (27.0-32.0); MCHC 33.2 g/dL (32.0-37.0); MCV 90.7 FL (80.0-97.0); Monocytes # (A) 0.42 X 10*3/uL (0.20-1.00); Monocytes % (A) 7.6 %; NRBC Per 100 WBC 0 X 10*3/uL (0.00-0.01); Neutrophils # (A) 2.79 X 10*3/uL (1.80-7.70); Neutrophils % (A) 50.2 %; Platelet Count 213 X 10*3/uL (140-440); RBC 4.19 X 10*6/uL (4.10-5.20); RDW 12.4 % (11.5-14.5); WBC 5.56 X 10*3/uL (4.50-10.00)
[2025-06-12 15:55] LABS: ALT 22 U/L (8-44); AST 23 U/L (13-35); Albumin 4.8 g/dL (3.8-4.9); Albumin/Globulin Ratio 1.71 Ratio (1.60-3.17); Alkaline Phosphatase 84 U/L (41-126); Anion Gap 11.30 mmol/L (4.00-12.00); BUN/Creat Ratio 26.29 Ratio (12.00-20.00); Blood Urea Nitrogen 18.4 mg/dL (9.0-27.0); Calcium 10.2 mg/dL (8.7-10.3); Carbon Dioxide 28.7 mmol/L (21.6-31.8); Chloride 99 mmol/L (96-109); Globulin 2.8 g/dL (1.6-3.3); Glucose 96 mg/dL (70-110); Potassium 3.7 mmol/L (3.5-5.5); Sodium 139 mmol/L (135-145); Total Protein 7.6 g/dL (6.2-8.2)
== END | disposition home or self-care (01) ==
LOC: LABWHC1 11:35
PROVIDERS: ATTEND Dermatology
DX: L40.0 Psoriasis vulgaris (principal); Z79.899 Other long term (current) drug therapy
CPT/HCPCS: 36415; 80053; 85025; 86480